=== PATIENT | male | born 1990 | race Two or more races ===

== ENCOUNTER 2020-01-29 10:55 | Emergency (ER) | payer SELFPAY ==
[~2020-01-29] VITALS: Ht 165.1 cm; Wt 81.0 kg
--- NOTE | 2020-01-29 11:49 | NUR ---
Angela gonzalez in ED - 01/29/20 at 1149 by KSHARP Pt here for R cheek swelling and tooth pain. Pt to xray
[2020-01-29 13:03] VITALS: BP 127/64
--- NOTE | 2020-01-29 13:03 | NUR ---
RECEIVED REPORT FROM FARIDEH LUCAS. PT RESTING ON [address]. VSS. AWARE OF POC FOR SPLINT/CRUTCH USE AND F/U WITH ORTHO.
== END 2020-01-29 13:35 | disposition home or self-care (01) ==
LOC: ED 13:02
DX: S82.62XA Displaced fracture of lateral malleolus of left fibula, initial encounter for closed fracture (principal); S92.212A Displaced fracture of cuboid bone of left foot, initial encounter for closed fracture; S92.222A Displaced fracture of lateral cuneiform of left foot, initial encounter for closed fracture; X50.1XXA Overexertion from prolonged static or awkward postures, initial encounter; Y93.89 Activity, other specified; Y92.488 Other paved roadways as the place of occurrence of the external cause; Y99.8 Other external cause status
CPT/HCPCS: 29515; 99284